=== PATIENT | male | born 1990 | race African-American/Black ===

== ENCOUNTER 2021-07-16 12:00 | Emergency (ER) | payer MEDICAID, OTHER ==
[~2021-07-16] VITALS: Ht 182.9 cm; Wt 70.0 kg
[~2021-07-16 12:00] MED LIST: [UNRECOGNIZED DRUG - OTHER]
[2021-07-16 12:05] VITALS: BP 147/84
[2021-07-16] MEDS ORDERED: CEPH500T MT (12:12)
== END 2021-07-16 12:35 | disposition home or self-care (01) ==
LOC: ER 12:00
DX: S21.112D Laceration without foreign body of left front wall of thorax without penetration into thoracic cavity, subsequent encounter (principal); Z48.02 Encounter for removal of sutures; Z79.899 Other long term (current) drug therapy; X58.XXXD Exposure to other specified factors, subsequent encounter
CPT/HCPCS: 99283